=== PATIENT | female | born 2005 | race Caucasian/White ===

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

== ENCOUNTER 2024-02-15 17:03 | Outpatient (REF) | payer OTHER, SELFPAY ==
[2024-02-15 19:31] LABS: Abs Immature Grans 0.01 10^3/uL (0.0-0.06); Absolute Basophil Count 0.02 10^3/uL (0.0-0.2); Absolute Eosinophil Count 0.11 10^3/uL (0.0-0.7); Absolute Monocyte Count 0.45 10^3/uL (0.1-0.8); Absolute Neutrophil Count 2.45 10^3/uL (1.2-6.7); Basophils % 0.4 %; HCT 36.3 % (36.0-46.0); HGB 12.6 g/dL (11.2-15.7); Immature Grans % 0.2 %; Lymphocytes % 44.1 %; MCH 31.4 pg (27.0-33.0); MCHC 34.7 % (32.0-36.0); MCV 91 fL (80-95); MPV 9.9 fL (8.0-11.0); Monocytes % 8.3 %; Platelet Count 241 10^3/uL (130-400); RBC 4.01 10^6/uL (3.93-5.22); RDW 11.4 % (11.7-14.6); RDW-SD 37.6 fL; WBC 5.44 10^3/uL (4.4-10.8)
[2024-02-15 19:44] LABS: PTT Activated 25.9 sec (23.6-32.8); Prothrombin Time 10.4 sec (9.1-11.1)
[2024-02-15 20:27] LABS: Vitamin B12 305 pg/mL (193-986)
== END 2024-02-15 17:04 | disposition home or self-care (01) ==
LOC: NCHCN 17:03
PROVIDERS: PCP Physician Assistant; Visit Provider Physician Assistant
DX: R23.3 Spontaneous ecchymoses (principal); E53.8 Deficiency of other specified B group vitamins
CPT/HCPCS: 82607; 85025; 85610; 85730

== ENCOUNTER 2024-08-21 14:43 | Outpatient (REF) | payer OTHER, SELFPAY ==
[2024-08-21 15:29] LABS: HCT 38.7 % (36.0-46.0); HGB 13.6 g/dL (11.2-15.7); MCH 31.8 pg (27.0-33.0); MCHC 35.1 % (32.0-36.0); MCV 90 fL (80-95); MPV 9.6 fL (8.0-11.0); Platelet Count 250 10^3/uL (130-400); RBC 4.28 10^6/uL (3.93-5.22); RDW 11.4 % (11.7-14.6); RDW-SD 37.2 fL; WBC 4.89 10^3/uL (4.4-10.8)
[2024-08-21 16:33] LABS: TSH (W/Ref FT4) 2.87 uIU/mL (0.36-3.74); Vitamin B12 339 pg/mL (193-986)
== END 2024-08-21 14:44 | disposition home or self-care (01) ==
LOC: NCHCN 14:43
PROVIDERS: PCP Physician Assistant; Visit Provider Physician Assistant
DX: R53.83 Other fatigue (principal)
CPT/HCPCS: 85027; 82607; 84443

== ENCOUNTER 2025-02-27 18:28 | Outpatient (REF) | payer OTHER, SELFPAY ==
[2025-02-27 18:44] LABS: HCT 40.6 % (36.0-46.0); HGB 14.1 g/dL (11.2-15.7); MCH 30.9 pg (27.0-33.0); MCHC 34.7 % (32.0-36.0); MCV 89 fL (80-95); MPV 9.6 fL (8.0-11.0); Platelet Count 253 10^3/uL (130-400); RBC 4.57 10^6/uL (3.93-5.22); RDW 11.2 % (11.7-14.6); RDW-SD 35.9 fL; WBC 8.21 10^3/uL (4.4-10.8)
[2025-02-27 18:49] LABS: Mono Screening Negative (Negative)
== END 2025-02-27 18:29 | disposition home or self-care (01) ==
LOC: NCHCN 18:28
PROVIDERS: PCP Physician Assistant; Visit Provider Physician Assistant
DX: J02.9 Acute pharyngitis, unspecified (principal)
CPT/HCPCS: 85027; 86308